=== PATIENT | female | born 1975 | race Caucasian/White ===

== ENCOUNTER → 2016-10-16 | Outpatient (CLI) | payer BC ==
--- NOTE | 2016-10-16 17:54 | Diagnostic Imaging Report ---
INDICATION: Back pain. History of scoliosis. FINDINGS: Non-standing views show mild levoscoliosis of the lumbar spine. This is estimated approximately 10 degrees. Alignment is otherwise good. Body heights and disc spaces are well maintained. No pars defects. Degenerative facet disease noted at L4-L5 and L5-S1. No hypertrophic bony lipping of the endplates noted. IMPRESSION: Levoscoliosis of the lumbar spine with degenerative facet disease in the lower lumbar region. Dictated by: Dictated on workstation # [id number]
== END ==
LOC: RAD 14:34
PROVIDERS: ATTEND Physician Assistant
DX: Z01.812 Encounter for preprocedural laboratory examination (principal); M54.5 Low back pain; M41.86 Other forms of scoliosis, lumbar region
CPT/HCPCS: 72100; 81025